=== PATIENT | female | born 1930 | race Caucasian/White ===

== ENCOUNTER 2017-08-31 11:24 | Inpatient (IN) | payer MEDICARE, OTHER ==
[~2017-08-31] VITALS: Ht 160 cm; Wt 51.0 kg
[2017-08-31 12:13] LABS: CLARITY,URINE SLIGHTLY CLOUDY (Clear); COLOR,URINE YELLOW (Yellow); GLUCOSE, URINE NEGATIVE (Neg); KETONES,URINE TRACE mg/dl (Neg); LEUKOCYTE ESTERASE ,URINE NEGATIVE (Neg); NITRITES, URINE NEGATIVE (Neg); OCCULT BLOOD,URINE LARGE (Neg); PROTEIN,URINE 30 mg/dl (Neg); UROBILINOGEN,URINE 0.2 E.U/dL (0.2-1.0)
[2017-08-31] MEDS ORDERED: normal saline 1000ML IV soln IVB ONE (12:15)
[2017-08-31 12:18] LABS: UA COLLECTION TYPE OTHER
[2017-08-31 12:19] LABS: AMORPHOUS URATES 2+; BACTERIA,URINE NONE SEEN /HPF (Neg); MUCUS STRANDS FEW /LPF (Neg); RBC,URINE 0-2 /HPF (0-2); SQUAMOUS EPITHELIAL CELL,UR FEW /LPF (FEW); WBC,URINE 0-4 /HPF (0-4)
[2017-08-31 12:39] LABS: BASOPHILS % (AUTO) 0.1 % (0-1); EOSINOPHILS % (AUTO) 0 % (0-6); HEMATOCRIT 37.2 % (35.0-45.0); LYMPHOCYTES # (AUTO) 0.8 X10'3 (1.1-4.8); LYMPHOCYTES % (AUTO) 11.5 % (21-51); MEAN CORPUSCULAR HEMOGLOBIN 33.5 PG (27.0-31.0); MEAN CORPUSCULAR HGB CONC 34.9 % (33.0-36.5); MEAN CORPUSCULAR VOLUME 95.9 FL (78-98); MEAN PLATELET VOLUME 10.5 FL (7.4-10.4); MONOCYTES # (AUTO) 0.6 X10'3 (0-0.9); MONOCYTES % (AUTO) 7.6 % (2-12); NEUTROPHILS # (AUTO) 5.9 X10'3 (1.8-7.7); NEUTROPHILS % (AUTO) 80.8 % (42-75); PLATELET COUNT 95 X10'3 (140-440); RED BLOOD COUNT 3.88 X10'6 (4.20-5.60); RED CELL DISTRIBUTION WIDTH 12.8 % (11.5-14.5); WHITE BLOOD COUNT 7.3 X10'3 (4.5-11.0)
[2017-08-31 12:48] LABS: INR 1.1 INR; PROTHROMBIN TIME 11.3 SECONDS (9.0-12.0)
[2017-08-31 12:56] LABS: LARGE PLATELETS FEW; PLATELET ESTIMATE DECREASED
[2017-08-31 13:06] LABS: ALANINE AMINOTRANSFERASE 62 U/L (12-78); ALBUMIN 3.6 G/DL (3.4-5.0); ALBUMIN/GLOBULIN RATIO 0.9 (1.1-1.5); ALKALINE PHOSPHATASE 55 IU/L (46-116); ANION GAP 11 (8-16); ASPARTATE AMINO TRANSFERASE 118 U/L (10-37); BILIRUBIN,TOTAL 0.5 MG/DL (0.1-1.0); BLOOD UREA NITROGEN 31 MG/DL (7-18); BUN/CREATININE RATIO 31.6 (6.6-38.0); CALCIUM 8.2 MG/DL (8.5-10.1); CHLORIDE 106 MMOL/L (99-107); CREATININE 0.98 MG/DL (0.40-0.90); ETHANOL < 0.010 GM/DL (0.0-0.010); GLUCOSE 107 MG/DL (70-104); POTASSIUM 3.6 MMOL/L (3.5-5.1); SODIUM 142 MMOL/L (135-145); TOTAL PROTEIN 7.4 G/DL (6.4-8.2); eGFR 54 ML/MIN
[2017-08-31 14:42] LABS: CREATINE KINASE 2520 U/L (26-192)
[2017-08-31] MEDS ORDERED: magnesium hydroxide 30ml (MOM) UD suspension PO PRN (16:55)
[2017-08-31] MEDS ORDERED: ondansetron/PF 4mg/2ml inj IV PRN (16:55)
[2017-08-31] MEDS ORDERED: acetaminophen 325mg tablet PO PRN (16:55)
[2017-08-31] MEDS ORDERED: mag hydrox/Alum hydrox/simeth 30ml oral suspension PO PRN (16:55)
[2017-08-31] MEDS ORDERED: aspirin 81mg tablet.DR PO ONE (16:55)
[2017-08-31] MEDS ORDERED: MULT-38 PO (18:15)
[2017-08-31] MEDS: normal saline 1000ml 1,000 ML IV SCH (18:28)
[2017-08-31 18:50] VITALS: BP 131/56
[2017-08-31 18:56] LABS: CHOL/HDL RATIO 3.4 (0.00-4.99); CHOLESTEROL 169 MG/DL (0-200); HDL CHOLESTEROL 49 MG/DL (35-60); LDL CHOLESTEROL 90 MG/DL (50-100); TRIGLYCERIDES 99 MG/DL (20-135)
[2017-08-31] MEDS: heparin, porcine 5000 units/ml vial SQ SCH (20:35)
[2017-08-31 22:00] VITALS: BP 116/48
[2017-09-01 02:00] VITALS: BP 116/59
[2017-09-01] MEDS: normal saline 1000ml 1,000 ML IV SCH ×2 (04:05→12:53)
[2017-09-01 06:00] VITALS: BP 125/62
[2017-09-01 06:11] LABS: BASOPHILS % (AUTO) 0.1 % (0-1); EOSINOPHILS % (AUTO) 0.3 % (0-6); HEMATOCRIT 32.7 % (35.0-45.0); HEMOGLOBIN 11.2 g/dl (12.0-16.0); LYMPHOCYTES # (AUTO) 1.4 X10'3 (1.1-4.8); MEAN CORPUSCULAR HEMOGLOBIN 33.5 PG (27.0-31.0); MEAN CORPUSCULAR HGB CONC 34.4 % (33.0-36.5); MEAN CORPUSCULAR VOLUME 97.4 FL (78-98); MEAN PLATELET VOLUME 10.6 FL (7.4-10.4); MONOCYTES # (AUTO) 0.5 X10'3 (0-0.9); MONOCYTES % (AUTO) 9.7 % (2-12); NEUTROPHILS # (AUTO) 2.9 X10'3 (1.8-7.7); NEUTROPHILS % (AUTO) 60.9 % (42-75); PLATELET COUNT 76 X10'3 (140-440); RED BLOOD COUNT 3.35 X10'6 (4.20-5.60); RED CELL DISTRIBUTION WIDTH 12.9 % (11.5-14.5); WHITE BLOOD COUNT 4.8 X10'3 (4.5-11.0)
[2017-09-01 06:23] LABS: ALBUMIN 2.7 G/DL (3.4-5.0); ANION GAP 11 (8-16); BLOOD UREA NITROGEN 18 MG/DL (7-18); BUN/CREATININE RATIO 23.1 (6.6-38.0); CALCIUM 7.5 MG/DL (8.5-10.1); CHLORIDE 111 MMOL/L (99-107); CREATININE 0.78 MG/DL (0.40-0.90); GLUCOSE 79 MG/DL (70-104); POTASSIUM 3.3 MMOL/L (3.5-5.1); SODIUM 143 MMOL/L (135-145); TOTAL CARBON DIOXIDE 21.4 MMOL/L (24-32); eGFR 70 ML/MIN
[2017-09-01] MEDS: heparin, porcine 5000 units/ml vial SQ SCH ×2 (08:00→20:00)
[2017-09-01] MEDS: levoTHYROXINE 75mcg tablet PO SCH (09:43)
[2017-09-01] MEDS: aspirin 81mg tablet.DR PO SCH (09:43)
[2017-09-01 10:00] VITALS: BP 115/49
[2017-09-01 14:00] VITALS: BP 112/52
[2017-09-01] MEDS: cetirizine 10mg tablet PO SCH (16:49)
[2017-09-01 18:55] VITALS: BP 122/55
[2017-09-01 22:00] VITALS: BP 144/60
[2017-09-02] MEDS: normal saline 1000ml 1,000 ML IV SCH ×3 (01:05→20:29)
[2017-09-02 02:00] VITALS: BP 138/46
[2017-09-02 05:52] LABS: BASOPHILS % (AUTO) 0.2 % (0-1); EOSINOPHILS % (AUTO) 0.3 % (0-6); HEMOGLOBIN 11.9 g/dl (12.0-16.0); LYMPHOCYTES # (AUTO) 1.9 X10'3 (1.1-4.8); LYMPHOCYTES % (AUTO) 38.7 % (21-51); MEAN CORPUSCULAR HGB CONC 35.1 % (33.0-36.5); MEAN CORPUSCULAR VOLUME 96.8 FL (78-98); MEAN PLATELET VOLUME 10.6 FL (7.4-10.4); MONOCYTES # (AUTO) 0.3 X10'3 (0-0.9); MONOCYTES % (AUTO) 6.1 % (2-12); NEUTROPHILS # (AUTO) 2.7 X10'3 (1.8-7.7); NEUTROPHILS % (AUTO) 54.7 % (42-75); PLATELET COUNT 70 X10'3 (140-440); RED BLOOD COUNT 3.52 X10'6 (4.20-5.60); RED CELL DISTRIBUTION WIDTH 13.3 % (11.5-14.5); WHITE BLOOD COUNT 4.9 X10'3 (4.5-11.0)
[2017-09-02 06:00] VITALS: BP 143/54
[2017-09-02 06:10] LABS: ALBUMIN 2.8 G/DL (3.4-5.0); ANION GAP 10 (8-16); BLOOD UREA NITROGEN 12 MG/DL (7-18); BUN/CREATININE RATIO 14.3 (6.6-38.0); CALCIUM 7.7 MG/DL (8.5-10.1); CHLORIDE 109 MMOL/L (99-107); CREATININE 0.84 MG/DL (0.40-0.90); GLUCOSE 93 MG/DL (70-104); POTASSIUM 3.5 MMOL/L (3.5-5.1); SODIUM 143 MMOL/L (135-145); eGFR 65 ML/MIN
[2017-09-02] MEDS: aspirin 81mg tablet.DR PO SCH (07:48)
[2017-09-02] MEDS: levoTHYROXINE 75mcg tablet PO SCH (07:48)
[2017-09-02] MEDS: cetirizine 10mg tablet PO SCH (07:48)
[2017-09-02] MEDS: heparin, porcine 5000 units/ml vial SQ SCH ×2 (07:55→20:00)
[2017-09-02 10:00] VITALS: BP 124/50
[2017-09-02 18:00] VITALS: BP 112/56
[2017-09-02 22:00] VITALS: BP 141/48
[2017-09-03] MEDS: normal saline 1000ml 1,000 ML IV SCH (03:45)
[2017-09-03 06:00] VITALS: BP 144/63
[2017-09-03 06:21] LABS: BASOPHILS % (AUTO) 0.4 % (0-1); HEMATOCRIT 32.7 % (35.0-45.0); HEMOGLOBIN 11.6 g/dl (12.0-16.0); LYMPHOCYTES # (AUTO) 1.8 X10'3 (1.1-4.8); MEAN CORPUSCULAR HEMOGLOBIN 33.5 PG (27.0-31.0); MEAN CORPUSCULAR HGB CONC 35.3 % (33.0-36.5); MEAN CORPUSCULAR VOLUME 94.8 FL (78-98); MEAN PLATELET VOLUME 10.2 FL (7.4-10.4); MONOCYTES # (AUTO) 0.3 X10'3 (0-0.9); MONOCYTES % (AUTO) 8.1 % (2-12); NEUTROPHILS # (AUTO) 1.9 X10'3 (1.8-7.7); NEUTROPHILS % (AUTO) 46.5 % (42-75); PLATELET COUNT 61 X10'3 (140-440); RED BLOOD COUNT 3.45 X10'6 (4.20-5.60); RED CELL DISTRIBUTION WIDTH 13.1 % (11.5-14.5); WHITE BLOOD COUNT 4.1 X10'3 (4.5-11.0)
[2017-09-03 06:27] LABS: ALBUMIN 2.6 G/DL (3.4-5.0); ANION GAP 8 (8-16); BLOOD UREA NITROGEN 11 MG/DL (7-18); BUN/CREATININE RATIO 15.1 (6.6-38.0); CALCIUM 7.6 MG/DL (8.5-10.1); CHLORIDE 112 MMOL/L (99-107); CREATININE 0.73 MG/DL (0.40-0.90); GLUCOSE 96 MG/DL (70-104); POTASSIUM 3.5 MMOL/L (3.5-5.1); SODIUM 145 MMOL/L (135-145); TOTAL CARBON DIOXIDE 24.6 MMOL/L (24-32); eGFR 76 ML/MIN
[2017-09-03] MEDS: heparin, porcine 5000 units/ml vial SQ SCH (08:00)
[2017-09-03] MEDS: cetirizine 10mg tablet PO SCH (08:39)
[2017-09-03] MEDS: levoTHYROXINE 75mcg tablet PO SCH (08:39)
[2017-09-03] MEDS: aspirin 81mg tablet.DR PO SCH (08:39)
[2017-09-03 10:00] VITALS: BP 125/56
== END 2017-09-03 15:15 | DRG 558 ==
LOC: ER 11:26 → ED HOLD 16:53 → ORTHO 4S 18:50
PROVIDERS: ADMIT Family Medicine; ATTEND Family Medicine
DX: M62.82 Rhabdomyolysis (principal); E86.0 Dehydration; D64.9 Anemia, unspecified; D32.0 Benign neoplasm of cerebral meninges; E03.9 Hypothyroidism, unspecified; R19.7 Diarrhea, unspecified
CPT/HCPCS: 36415; 70450; 70544; 70551; 71045; 80048; 80053; 80061; 80320; 81001; 82550; 84443; 84484; 85025; 85610; 87070; 93005; 93306; 93880; 96360; 97110; 97116; 97161; 97530; 99285; J1644; J7030

== ENCOUNTER 2017-10-09 18:16 | Inpatient (IN) | payer MEDICARE, OTHER ==
[~2017-10-09] VITALS: Ht 160 cm; Wt 50.9 kg
[~2017-10-09 18:16] MED LIST: MULT-38 PO
[2017-10-09] MEDS ORDERED: ondansetron 4mg rapidly disintigrating tab PO ONE (19:15)
[2017-10-09] MEDS ORDERED: HYDROcodone/acetaminophen 5mg/325mg tablet PO ONE (19:15)
[2017-10-09 20:23] LABS: BASOPHILS % (AUTO) 0.2 % (0-1); EOSINOPHILS # (AUTO) 0.1 X10'3 (0-0.9); EOSINOPHILS % (AUTO) 0.9 % (0-6); HEMATOCRIT 34.3 % (35.0-45.0); HEMOGLOBIN 11.6 g/dl (12.0-16.0); LYMPHOCYTES # (AUTO) 1.7 X10'3 (1.1-4.8); LYMPHOCYTES % (AUTO) 13.2 % (21-51); MEAN CORPUSCULAR HEMOGLOBIN 33.1 PG (27.0-31.0); MEAN CORPUSCULAR HGB CONC 33.8 % (33.0-36.5); MEAN CORPUSCULAR VOLUME 97.9 FL (78-98); MEAN PLATELET VOLUME 9.6 FL (7.4-10.4); MONOCYTES # (AUTO) 0.6 X10'3 (0-0.9); MONOCYTES % (AUTO) 4.8 % (2-12); NEUTROPHILS # (AUTO) 10.2 X10'3 (1.8-7.7); NEUTROPHILS % (AUTO) 80.9 % (42-75); PLATELET COUNT 173 X10'3 (140-440); RED CELL DISTRIBUTION WIDTH 13.2 % (11.5-14.5); WHITE BLOOD COUNT 12.6 X10'3 (4.5-11.0)
[2017-10-09 20:31] LABS: CLARITY,URINE Clear (Clear); COLOR,URINE Yellow (Yellow); GLUCOSE, URINE Negative (Neg); KETONES,URINE Negative (Neg); LEUKOCYTE ESTERASE ,URINE Trace (Neg); NITRITES, URINE Negative (Neg); OCCULT BLOOD,URINE Negative (Neg); PH,URINE 6.5 (4.8-8.0); PROTEIN,URINE Negative (Neg); UROBILINOGEN,URINE 0.2 E.U/dL (0.2-1.0)
[2017-10-09 20:33] LABS: INR 1.1 INR; PARTIAL THROMBOPLASTIN TIME 25 SECONDS (22-32); PROTHROMBIN TIME 10.9 SECONDS (9.0-12.0)
[2017-10-09 20:34] LABS: UA COLLECTION TYPE STRAIGHT CATH
[2017-10-09 20:36] LABS: ALANINE AMINOTRANSFERASE 34 U/L (12-78); ALBUMIN 3.4 G/DL (3.4-5.0); ALBUMIN/GLOBULIN RATIO 0.9 (1.1-1.5); ALKALINE PHOSPHATASE 69 IU/L (46-116); ANION GAP 11 (8-16); ASPARTATE AMINO TRANSFERASE 29 U/L (10-37); BILIRUBIN,TOTAL 0.4 MG/DL (0.1-1.0); BLOOD UREA NITROGEN 15 MG/DL (7-18); BUN/CREATININE RATIO 20.3 (6.6-38.0); CALCIUM 8.6 MG/DL (8.5-10.1); CHLORIDE 106 MMOL/L (99-107); CREATININE 0.74 MG/DL (0.40-0.90); GLUCOSE 104 MG/DL (70-104); POTASSIUM 3.7 MMOL/L (3.5-5.1); SODIUM 143 MMOL/L (135-145); TOTAL CARBON DIOXIDE 25.9 MMOL/L (24-32); eGFR 75 ML/MIN
[2017-10-09 20:46] LABS: BACTERIA,URINE NONE SEEN /HPF (Neg); RBC,URINE NONE SEEN /HPF (0-2); SQUAMOUS EPITHELIAL CELL,UR FEW /LPF (FEW); WBC,URINE 0-4 /HPF (0-4)
[2017-10-09] MEDS ORDERED: ondansetron/PF 4mg/2ml inj IV ONE (22:10)
[2017-10-09] MEDS ORDERED: morphine 4 MG/ML inj SYRINge IV ONE (22:10)
[2017-10-10] VITALS (21 sets, daily range): BP systolic 102–164; BP diastolic 38–87
[2017-10-10] MEDS ORDERED: acetaminophen 325mg tablet PO PRN ×2 (00:30)
[2017-10-10] MEDS ORDERED: diphenhydrAMINE 50 mg/ml inj IV PRN (00:30)
[2017-10-10] MEDS ORDERED: HYDROcodone/acetaminophen 10/325mg tab PO PRN (00:30)
[2017-10-10] MEDS ORDERED: mag hydrox/Alum hydrox/simeth 30ml oral suspension PO PRN (00:30)
[2017-10-10] MEDS ORDERED: acetaminophen 650mg rectal suppository RC PRN (00:30)
[2017-10-10] MEDS ORDERED: magnesium hydroxide 30ml (MOM) UD suspension PO PRN (00:30)
[2017-10-10] MEDS ORDERED: HYDROmorphone inj. 0.5 MG/0.5 ML DISP.SYRIN IV PRN ×2 (00:30)
[2017-10-10] MEDS ORDERED: diphenhydrAMINE 25mg capsule PO PRN (00:30)
[2017-10-10] MEDS ORDERED: ondansetron/PF 4mg/2ml inj IV PRN ×2 (00:30→10:55)
[2017-10-10] MEDS ORDERED: morphine 4 MG/ML inj SYRINge IV PRN ×2 (00:30)
[2017-10-10] MEDS ORDERED: metoclopramide 5 mg/ml inj IV PRN (00:30)
[2017-10-10] MEDS: normal saline 1000ml 1,000 ML IV SCH (01:21)
[2017-10-10 01:38] LABS: HEMOGLOBIN A1C 5.1 % (4.5-6.2)
[2017-10-10 01:51] LABS: MAGNESIUM 1.8 MG/DL (1.5-2.4); PHOSPHORUS 3.9 MG/DL (2.3-4.5)
[2017-10-10] MEDS: docusate sod 100mg capsule PO SCH ×2 (06:37→19:22)
[2017-10-10] MEDS: multivitamins, therapeutics tablet PO SCH (06:38)
[2017-10-10] MEDS: pantoprazole 40 MG vial IV SCH (07:11)
[2017-10-10] MEDS ORDERED: ceFAZolin 1GM/D5W- ADD-VANTAGE 50 ML IV ONE (10:05)
[2017-10-10] MEDS ORDERED: LEVO125T PO (10:10)
[2017-10-10] MEDS ORDERED: ceFAZolin 1000mg inj ONE (10:53)
[2017-10-10] MEDS ORDERED: ringers solution, lacted 1,000 ML IV SCH (10:54)
[2017-10-10] MEDS ORDERED: proCHLORperazine 10 MG/2 ml inj IV PRN (10:55)
[2017-10-10] MEDS ORDERED: morphine 10mg/ml inj. IV PRN ×2 (10:55)
[2017-10-10] MEDS ORDERED: meperidine/PF 50mg/ml syringe IV PRN ×3 (10:55)
[2017-10-10] MEDS ORDERED: MIDAZolam 5mg/5ml vial ONE (11:13)
[2017-10-10] MEDS ORDERED: fentaNYL/PF 50MCG/1 ML 2ML syringe ONE (11:13)
[2017-10-10] MEDS ORDERED: BUPIVAcaine/dex-water/PF 7.5 mg/ml 2ml ampul ONE (11:19)
[2017-10-10] MEDS ORDERED: morphine /PF 1mg/ml 10ml inj. ONE (11:31)
[2017-10-10] MEDS ORDERED: vancomycin/NS 1 GM ADD-VANTAGE 250 ML IV ONE (13:00)
[2017-10-10] MEDS: ceFAZolin 1GM/D5W- ADD-VANTAGE 50 ML IV SCH ×2 (16:10→23:32)
[2017-10-10] MEDS ORDERED: temazepam 15mg capsule PO PRN (21:00)
[2017-10-11 02:00] VITALS: BP 136/52
[2017-10-11 06:00] VITALS: BP 123/43
[2017-10-11] MEDS ORDERED: levoTHYROXINE 125mcg tablet PO SCH ×2 (07:00→08:00)
[2017-10-11 07:16] LABS: BASOPHILS % (AUTO) 0.5 % (0-1); EOSINOPHILS # (AUTO) 0.1 X10'3 (0-0.9); EOSINOPHILS % (AUTO) 1.7 % (0-6); HEMATOCRIT 24.4 % (35.0-45.0); HEMOGLOBIN 8.3 g/dl (12.0-16.0); LYMPHOCYTES % (AUTO) 23.9 % (21-51); MEAN CORPUSCULAR HEMOGLOBIN 33.2 PG (27.0-31.0); MEAN CORPUSCULAR HGB CONC 33.9 % (33.0-36.5); MEAN CORPUSCULAR VOLUME 98.2 FL (78-98); MEAN PLATELET VOLUME 9.8 FL (7.4-10.4); MONOCYTES # (AUTO) 1.1 X10'3 (0-0.9); MONOCYTES % (AUTO) 12.7 % (2-12); NEUTROPHILS # (AUTO) 5.1 X10'3 (1.8-7.7); NEUTROPHILS % (AUTO) 61.2 % (42-75); PLATELET COUNT 113 X10'3 (140-440); RED BLOOD COUNT 2.48 X10'6 (4.20-5.60); WHITE BLOOD COUNT 8.3 X10'3 (4.5-11.0)
[2017-10-11 07:40] LABS: ALANINE AMINOTRANSFERASE 23 U/L (12-78); ALBUMIN 2.4 G/DL (3.4-5.0); ALBUMIN/GLOBULIN RATIO 0.8 (1.1-1.5); ALKALINE PHOSPHATASE 44 IU/L (46-116); ANION GAP 6 (8-16); ASPARTATE AMINO TRANSFERASE 21 U/L (10-37); BILIRUBIN,TOTAL 0.7 MG/DL (0.1-1.0); BLOOD UREA NITROGEN 19 MG/DL (7-18); BUN/CREATININE RATIO 24.4 (6.6-38.0); CALCIUM 7.9 MG/DL (8.5-10.1); CHLORIDE 107 MMOL/L (99-107); CHOL/HDL RATIO 2.7 (0.00-4.99); CHOLESTEROL 112 MG/DL (0-200); CREATININE 0.78 MG/DL (0.40-0.90); GLUCOSE 99 MG/DL (70-104); HDL CHOLESTEROL 42 MG/DL (35-60); LDL CHOLESTEROL 59 MG/DL (50-100); POTASSIUM 3.5 MMOL/L (3.5-5.1); SODIUM 139 MMOL/L (135-145); TOTAL CARBON DIOXIDE 26.3 MMOL/L (24-32); TOTAL PROTEIN 5.3 G/DL (6.4-8.2); TRIGLYCERIDES 59 MG/DL (20-135); eGFR 70 ML/MIN
[2017-10-11] MEDS: enoxaparin 40mg/0.4ml syringe SUBCUT SCH (07:44)
[2017-10-11] MEDS: docusate sod 100mg capsule PO SCH ×2 (07:44→20:49)
[2017-10-11] MEDS: ceFAZolin 1GM/D5W- ADD-VANTAGE 50 ML IV SCH (07:44)
[2017-10-11] MEDS: pantoprazole 40 MG vial IV SCH (07:44)
[2017-10-11] MEDS: multivitamins, therapeutics tablet PO SCH (07:44)
[2017-10-11 10:00] VITALS: BP 131/45
[2017-10-11 14:26] VITALS: BP 123/42
[2017-10-11] MEDS: normal saline 1000ml 1,000 ML IV SCH (16:11)
[2017-10-11 18:00] VITALS: BP 148/40
[2017-10-11 22:00] VITALS: BP 150/52
[2017-10-12] MEDS: normal saline 1000ml 1,000 ML IV SCH ×2 (05:22→18:22)
[2017-10-12] MEDS: HYDROcodone/acetaminophen 5mg/325mg tablet PO PRN ×2 (05:24→20:38)
[2017-10-12 05:29] LABS: BASOPHILS % (AUTO) 0.3 % (0-1); EOSINOPHILS # (AUTO) 0.1 X10'3 (0-0.9); EOSINOPHILS % (AUTO) 0.9 % (0-6); HEMATOCRIT 23.6 % (35.0-45.0); HEMOGLOBIN 8.2 g/dl (12.0-16.0); LYMPHOCYTES # (AUTO) 1.3 X10'3 (1.1-4.8); LYMPHOCYTES % (AUTO) 13.2 % (21-51); MEAN CORPUSCULAR HEMOGLOBIN 33.2 PG (27.0-31.0); MEAN CORPUSCULAR HGB CONC 34.8 % (33.0-36.5); MEAN CORPUSCULAR VOLUME 95.6 FL (78-98); MEAN PLATELET VOLUME 9.6 FL (7.4-10.4); MONOCYTES % (AUTO) 10.1 % (2-12); NEUTROPHILS # (AUTO) 7.6 X10'3 (1.8-7.7); NEUTROPHILS % (AUTO) 75.5 % (42-75); PLATELET COUNT 115 X10'3 (140-440); RED BLOOD COUNT 2.47 X10'6 (4.20-5.60); RED CELL DISTRIBUTION WIDTH 13.1 % (11.5-14.5); WHITE BLOOD COUNT 10.1 X10'3 (4.5-11.0)
[2017-10-12 06:00] VITALS: BP 146/60
[2017-10-12 06:21] LABS: ALANINE AMINOTRANSFERASE 17 U/L (12-78); ALBUMIN 2.2 G/DL (3.4-5.0); ALBUMIN/GLOBULIN RATIO 0.7 (1.1-1.5); ALKALINE PHOSPHATASE 45 IU/L (46-116); ANION GAP 11 (8-16); ASPARTATE AMINO TRANSFERASE 18 U/L (10-37); BILIRUBIN,TOTAL 0.6 MG/DL (0.1-1.0); BLOOD UREA NITROGEN 12 MG/DL (7-18); BUN/CREATININE RATIO 21.1 (6.6-38.0); CALCIUM 7.9 MG/DL (8.5-10.1); CHLORIDE 108 MMOL/L (99-107); CREATININE 0.57 MG/DL (0.40-0.90); GLUCOSE 117 MG/DL (70-104); POTASSIUM 3.2 MMOL/L (3.5-5.1); SODIUM 140 MMOL/L (135-145); TOTAL CARBON DIOXIDE 20.7 MMOL/L (24-32); TOTAL PROTEIN 5.3 G/DL (6.4-8.2); eGFR > 90 ML/MIN
[2017-10-12] MEDS: pantoprazole 40mg Tablet.DR PO SCH (08:48)
[2017-10-12] MEDS: enoxaparin 40mg/0.4ml syringe SUBCUT SCH (08:48)
[2017-10-12] MEDS: docusate sod 100mg capsule PO SCH ×2 (08:48→20:37)
[2017-10-12] MEDS: multivitamins, therapeutics tablet PO SCH (08:48)
[2017-10-12] MEDS: levoTHYROXINE 125mcg tablet PO SCH (08:48)
[2017-10-12 10:00] VITALS: BP 125/42
[2017-10-12] MEDS ORDERED: magnesium 2GM in 50ml NS 50 ML IV PRN (15:45)
[2017-10-12] MEDS ORDERED: potassium Cl 20 mEq SR tablet PO PRN (15:45)
[2017-10-12] MEDS ORDERED: potassium Cl 40MEQ/NS 500ml 500 ML IV PRN ×2 (15:45)
[2017-10-12] MEDS ORDERED: magnesium Cl slow-release 64mg tablet PO PRN (15:45)
[2017-10-12] MEDS ORDERED: magnesium 4gm in 100ml NS 100 ML IV PRN (15:45)
[2017-10-12 18:00] VITALS: BP 154/50
[2017-10-12] MEDS: potassium Cl 20 mEq SR tablet PO PRN (20:38)
[2017-10-12 22:18] VITALS: BP 125/45
[2017-10-13] MEDS: potassium Cl 20 mEq SR tablet PO PRN (00:34)
[2017-10-13 05:50] LABS: BASOPHILS % (AUTO) 0.2 % (0-1); EOSINOPHILS # (AUTO) 0.3 X10'3 (0-0.9); EOSINOPHILS % (AUTO) 2.8 % (0-6); HEMATOCRIT 23.3 % (35.0-45.0); HEMOGLOBIN 8.1 g/dl (12.0-16.0); LYMPHOCYTES # (AUTO) 1.6 X10'3 (1.1-4.8); MEAN CORPUSCULAR HEMOGLOBIN 33.8 PG (27.0-31.0); MEAN CORPUSCULAR HGB CONC 34.7 % (33.0-36.5); MEAN CORPUSCULAR VOLUME 97.4 FL (78-98); MEAN PLATELET VOLUME 9.7 FL (7.4-10.4); MONOCYTES # (AUTO) 0.8 X10'3 (0-0.9); NEUTROPHILS # (AUTO) 6.4 X10'3 (1.8-7.7); PLATELET COUNT 143 X10'3 (140-440); RED BLOOD COUNT 2.39 X10'6 (4.20-5.60); WHITE BLOOD COUNT 9.1 X10'3 (4.5-11.0)
[2017-10-13 06:00] VITALS: BP 138/60
[2017-10-13 06:34] LABS: ALANINE AMINOTRANSFERASE 30 U/L (12-78); ALBUMIN/GLOBULIN RATIO 0.6 (1.1-1.5); ALKALINE PHOSPHATASE 70 IU/L (46-116); ANION GAP 8 (8-16); ASPARTATE AMINO TRANSFERASE 45 U/L (10-37); BILIRUBIN,TOTAL 0.6 MG/DL (0.1-1.0); BLOOD UREA NITROGEN 13 MG/DL (7-18); BUN/CREATININE RATIO 24.1 (6.6-38.0); CALCIUM 7.8 MG/DL (8.5-10.1); CHLORIDE 108 MMOL/L (99-107); CREATININE 0.54 MG/DL (0.40-0.90); GLUCOSE 105 MG/DL (70-104); MAGNESIUM 2.1 MG/DL (1.5-2.4); POTASSIUM 3.9 MMOL/L (3.5-5.1); SODIUM 140 MMOL/L (135-145); TOTAL CARBON DIOXIDE 24.5 MMOL/L (24-32); TOTAL PROTEIN 5.4 G/DL (6.4-8.2); eGFR > 90 ML/MIN
[2017-10-13] MEDS: levoTHYROXINE 125mcg tablet PO SCH (08:45)
[2017-10-13] MEDS: multivitamins, therapeutics tablet PO SCH (08:45)
[2017-10-13] MEDS: pantoprazole 40mg Tablet.DR PO SCH (08:45)
[2017-10-13] MEDS: enoxaparin 40mg/0.4ml syringe SUBCUT SCH (08:46)
[2017-10-13] MEDS: docusate sod 100mg capsule PO SCH (08:46)
[2017-10-13] MEDS: normal saline 1000ml 1,000 ML IV SCH (08:46)
[2017-10-13 10:00] VITALS: BP 133/51
[2017-10-13] MEDS: HYDROcodone/acetaminophen 5mg/325mg tablet PO PRN (12:19)
== END 2017-10-13 13:10 | DRG 481 ==
LOC: ER 18:16 → ED HOLD 23:56 → EDBEDREQ 10-10 00:10 → ORTHO 4S 10-10 01:00
PROVIDERS: ADMIT Family Medicine; ATTEND Orthopaedic Surgery
PROC: 0QS606Z Reposition Right Upper Femur with Intramedullary Internal Fixation Device, Open Approach (ICD-10-PCS; principal; 2017-10-10 11:22)
DX: S72.141A Displaced intertrochanteric fracture of right femur, initial encounter for closed fracture (principal); D62 Acute posthemorrhagic anemia; W01.0XXA Fall on same level from slipping, tripping and stumbling without subsequent striking against object, initial encounter; E03.9 Hypothyroidism, unspecified; E87.6 Hypokalemia; I16.0 Hypertensive urgency; Z79.899 Other long term (current) drug therapy; Y93.89 Activity, other specified; Y92.89 Other specified places as the place of occurrence of the external cause; Y99.8 Other external cause status
CPT/HCPCS: 36415; 71045; 73502; 73560; 76001; 80053; 80061; 81001; 83036; 83735; 83880; 84100; 84443; 85025; 85610; 85730; 86885; 86900; 86901; 87070; 87088; 93005; 96374; 97110; 97116; 97162; 97530; 99285; A4315; A6212; A6257; A6449; A7000; C9113; J0690; J1650; J2250; J2270; J2274; J3010; J3370; J3490; J7030; J7120

== ENCOUNTER 2019-04-16 12:28 | Inpatient (IN) | payer MEDICARE, OTHER ==
[~2019-04-16] VITALS: Ht 160 cm; Wt 50.9 kg
[2019-04-16] MEDS: K and/or MAG REPLACEMENT MC SCH (08:00)
[~2019-04-16 12:28] MED LIST changes: +LEVO125T PO
[2019-04-16] MEDS ORDERED: normal saline 1000ML IV soln IVB ONE (12:45)
[2019-04-16 13:12] LABS: BASOPHILS % (AUTO) 0.2 % (0-1); EOSINOPHILS % (AUTO) 0 % (0-6); HEMATOCRIT 37.3 % (35.0-45.0); HEMOGLOBIN 12.6 g/dl (12.0-16.0); LYMPHOCYTES # (AUTO) 1.1 X10'3 (1.1-4.8); LYMPHOCYTES % (AUTO) 8.7 % (21-51); MEAN CORPUSCULAR HEMOGLOBIN 33.5 PG (27.0-31.0); MEAN CORPUSCULAR HGB CONC 33.8 g/dL (33.0-36.5); MEAN CORPUSCULAR VOLUME 99.2 FL (78-98); MEAN PLATELET VOLUME 9.7 FL (7.4-10.4); MONOCYTES # (AUTO) 0.6 X10'3 (0-0.9); MONOCYTES % (AUTO) 4.8 % (2-12); NEUTROPHILS # (AUTO) 11.1 X10'3 (1.8-7.7); NEUTROPHILS % (AUTO) 86.3 % (42-75); PLATELET COUNT 149 X10'3 (140-440); RED BLOOD COUNT 3.75 X10'6 (4.20-5.60); RED CELL DISTRIBUTION WIDTH 12.8 % (11.5-14.5); WHITE BLOOD COUNT 12.8 X10'3 (4.5-11.0)
[2019-04-16 13:24] LABS: PARTIAL THROMBOPLASTIN TIME 25 SECONDS (22-32)
[2019-04-16 14:11] LABS: CLARITY,URINE CLEAR (Clear); COLOR,URINE YELLOW (Yellow); GLUCOSE, URINE NEGATIVE (Neg); KETONES,URINE 15 mg/dl (Neg); LEUKOCYTE ESTERASE ,URINE NEGATIVE (Neg); NITRITES, URINE NEGATIVE (Neg); OCCULT BLOOD,URINE NEGATIVE (Neg); PH,URINE 6.5 (4.8-8.0); PROTEIN,URINE NEGATIVE (Neg); UA COLLECTION TYPE STRAIGHT CATH; UROBILINOGEN,URINE 0.2 E.U/dL (0.2-1.0)
[2019-04-16 14:18] LABS: ALANINE AMINOTRANSFERASE 26 U/L (12-78); ALBUMIN 3.4 G/DL (3.4-5.0); ALBUMIN/GLOBULIN RATIO 0.8 (1.1-1.5); ALKALINE PHOSPHATASE 57 IU/L (46-116); ANION GAP 11 (8-16); ASPARTATE AMINO TRANSFERASE 29 U/L (10-37); BILIRUBIN,TOTAL 0.7 MG/DL (0.1-1.0); BLOOD UREA NITROGEN 12 MG/DL (7-18); BUN/CREATININE RATIO 16.2 (6.6-38.0); CALCIUM 8.4 MG/DL (8.5-10.1); CHLORIDE 105 MMOL/L (99-107); CREATININE 0.74 MG/DL (0.40-0.90); GLUCOSE 110 MG/DL (70-104); LIPASE 1277 U/L (73-393); MAGNESIUM 1.9 MG/DL (1.5-2.4); POTASSIUM 3.8 MMOL/L (3.5-5.1); SODIUM 139 MMOL/L (135-145); TOTAL CARBON DIOXIDE 23.3 MMOL/L (24-32); TOTAL PROTEIN 7.5 G/DL (6.4-8.2); eGFR 74 ML/MIN
[2019-04-16] MEDS ORDERED: levoFLOXACIN-Levaquin 750MG/D5 150 ML IV ONE (14:30)
[2019-04-16] MEDS ORDERED: CefTRIAXone 2gm/D5W 50ml 50 ML IV ONE (14:30)
[2019-04-16] MEDS ORDERED: CA C1TAB91 PO (14:55)
[2019-04-16] MEDS ORDERED: ALEN70TA3 PO (14:55)
[2019-04-16] MEDS ORDERED: LEVO100T PO (14:55)
[2019-04-16] MEDS ORDERED: ASPI81TA52 PO (14:55)
[2019-04-16] MEDS ORDERED: mag hydrox/Alum hydrox/simeth 30ml oral suspension PO PRN ×2 (15:05→15:30)
[2019-04-16] MEDS ORDERED: magnesium hydroxide 30ml (MOM) UD suspension PO PRN ×2 (15:05→15:30)
[2019-04-16] MEDS ORDERED: non-formulary drug (Alendronate Sodium (Fosamax) 1 TAB) PO SCH (15:05)
[2019-04-16] MEDS ORDERED: acetaminophen 325mg tablet PO PRN ×3 (15:05→15:30)
[2019-04-16] MEDS ORDERED: ondansetron/PF 4mg/2ml inj IV PRN ×2 (15:05→15:30)
[2019-04-16] MEDS ORDERED: HYDROcodone/acetaminophen 5mg/325mg tablet PO PRN (15:30)
[2019-04-16] MEDS ORDERED: potassium Cl 20 mEq SR tablet PO PRN ×2 (15:30)
[2019-04-16] MEDS ORDERED: magnesium 4gm in 100ml NS 100 ML IV PRN (15:30)
[2019-04-16] MEDS ORDERED: morphine 2 MG/ML inj. syringe IV PRN ×2 (15:30)
[2019-04-16] MEDS ORDERED: magnesium Cl slow-release 64mg tablet PO PRN (15:30)
[2019-04-16] MEDS ORDERED: bisacodyl 10mg suppository rectal RC PRN (15:30)
[2019-04-16] MEDS ORDERED: acetaminophen 650mg rectal suppository RC PRN (15:30)
[2019-04-16] MEDS ORDERED: HYDROcodone/acetaminophen 10/325mg tab PO PRN (15:30)
[2019-04-16] MEDS ORDERED: diphenhydrAMINE 50 mg/ml inj IV PRN (15:30)
[2019-04-16] MEDS ORDERED: magnesium 2GM in 50ml NS 50 ML IV PRN (15:30)
[2019-04-16] MEDS ORDERED: diphenhydrAMINE 25mg capsule PO PRN (15:30)
[2019-04-16] MEDS ORDERED: potassium CL 10mEq/100ml bag 100 ML IV PRN ×2 (15:30)
[2019-04-16 15:52] LABS: HEMOGLOBIN A1C 5.4 % (4.5-6.2)
[2019-04-16 15:53] LABS: D-DIMER 1.43 MG/L FEU (0-0.50)
--- NOTE | 2019-04-16 16:39 | NUR ---
ATTEMPTED TO CALL REPORT, SHEET TAILER WILL CALL BACK WHEN RN IS ASSIGNED
[2019-04-16] MEDS: dextrose 5%-normal saline 1,000 ML IV SCH (16:43)
[2019-04-16 17:00] VITALS: BP 138/58
--- NOTE | 2019-04-16 17:15 | NUR ---
Patient admitted to room [facility] from ED. I have received report from Virginia MENDEZ and had the opportunity to ask questions and assume patient care. VSS 138/58 90 98.2 19 92 % om RA, pain 0/10, Tele monitor for 24 hrs, tele monitor 27 applied, call light w/in reach, all needs met at this time, will continue to monitor.
[2019-04-16] MEDS ORDERED: iohexol 350MG/ML 100ml bottle IV ONE (17:23)
[2019-04-16 18:00] VITALS: BP 148/57
--- NOTE | 2019-04-16 18:13 | NUR ---
Problems reprioritized. Patient report given, questions answered & plan of care reviewed with Wilfredo MENDEZ.
--- NOTE | 2019-04-16 18:13 | NUR ---
Patient in room [facility]. I have received report from ANDREA Christy and had the opportunity to ask questions and assume patient care. Pt is accompanied by sister, Dot. Pt denies CP, SOB, n/v, pain.
[2019-04-16] MEDS: calcium carbonate/vitamin D3 tablet PO SCH (19:49)
[2019-04-16] MEDS: heparin, porcine 5000 units/ml vial SQ SCH (19:49)
[2019-04-16] MEDS ORDERED: temazepam 15mg capsule PO PRN (21:00)
[2019-04-17] VITALS: BP 143/56
[2019-04-17] MEDS: dextrose 5%-normal saline 1,000 ML IV SCH (03:59)
[2019-04-17 05:23] LABS: BASOPHILS % (AUTO) 0.3 % (0-1); EOSINOPHILS % (AUTO) 0.6 % (0-6); HEMATOCRIT 33.6 % (35.0-45.0); HEMOGLOBIN 11.4 g/dl (12.0-16.0); LYMPHOCYTES # (AUTO) 1.5 X10'3 (1.1-4.8); LYMPHOCYTES % (AUTO) 18.7 % (21-51); MEAN CORPUSCULAR HEMOGLOBIN 33.7 PG (27.0-31.0); MEAN CORPUSCULAR HGB CONC 33.9 g/dL (33.0-36.5); MEAN CORPUSCULAR VOLUME 99.5 FL (78-98); MEAN PLATELET VOLUME 9.8 FL (7.4-10.4); MONOCYTES # (AUTO) 0.6 X10'3 (0-0.9); MONOCYTES % (AUTO) 7.1 % (2-12); NEUTROPHILS # (AUTO) 5.8 X10'3 (1.8-7.7); NEUTROPHILS % (AUTO) 73.3 % (42-75); PLATELET COUNT 128 X10'3 (140-440); RED BLOOD COUNT 3.37 X10'6 (4.20-5.60); RED CELL DISTRIBUTION WIDTH 12.7 % (11.5-14.5); WHITE BLOOD COUNT 7.9 X10'3 (4.5-11.0)
[2019-04-17 05:37] LABS: ALANINE AMINOTRANSFERASE 26 U/L (12-78); ALBUMIN 2.7 G/DL (3.4-5.0); ALBUMIN/GLOBULIN RATIO 0.7 (1.1-1.5); ALKALINE PHOSPHATASE 48 IU/L (46-116); ANION GAP 9 (8-16); ASPARTATE AMINO TRANSFERASE 26 U/L (10-37); BILIRUBIN,TOTAL 0.7 MG/DL (0.1-1.0); BLOOD UREA NITROGEN 9 MG/DL (7-18); BUN/CREATININE RATIO 12.7 (6.6-38.0); CALCIUM 7.7 MG/DL (8.5-10.1); CHLORIDE 110 MMOL/L (99-107); CHOL/HDL RATIO 2.5 (0.00-4.99); CHOLESTEROL 136 MG/DL (0-200); CREATININE 0.71 MG/DL (0.40-0.90); GLUCOSE 104 MG/DL (70-104); HDL CHOLESTEROL 54 MG/DL (35-60); LDL CHOLESTEROL 79 MG/DL (50-100); LIPASE 106 U/L (73-393); MAGNESIUM 1.8 MG/DL (1.5-2.4); POTASSIUM 3.5 MMOL/L (3.5-5.1); SODIUM 143 MMOL/L (135-145); TOTAL CARBON DIOXIDE 23.6 MMOL/L (24-32); TOTAL PROTEIN 6.4 G/DL (6.4-8.2); TRIGLYCERIDES 37 MG/DL (20-135); eGFR 78 ML/MIN
--- NOTE | 2019-04-17 06:30 | NUR ---
Patient in room [facility]. I have received report from ANDREA Villalobos and had the opportunity to ask questions and assume patient care.
--- NOTE | 2019-04-17 06:43 | NUR ---
Problems reprioritized. Patient report given, questions answered & plan of care reviewed with ANDREA Khanna. Patient stable at shift change
--- NOTE | 2019-04-17 07:12 | NUR ---
RECEIVED REPORT FROM JAIMIE MENDEZ. MARISA Germain RN
[2019-04-17] MEDS: calcium carbonate/vitamin D3 tablet PO SCH (07:30)
[2019-04-17] MEDS ORDERED: levoTHYROXINE 25mcg tablet PO SCH (08:00)
[2019-04-17] MEDS ORDERED: aspirin 81mg tablet.DR PO SCH (08:00)
[2019-04-17] MEDS: K and/or MAG REPLACEMENT MC SCH (08:00)
[2019-04-17] MEDS ORDERED: levoTHYROXINE 100mcg tablet PO SCH (08:00)
[2019-04-17] MEDS ORDERED: iohexol 350MG/ML 100ml bottle IV ONE (08:14)
[2019-04-17] MEDS: heparin, porcine 5000 units/ml vial SQ SCH (10:00)
[2019-04-17] MEDS ORDERED: furosemide 20MG tablet PO ONE (10:20)
[2019-04-17 11:00] VITALS: BP 149/74
[2019-04-17 11:46] VITALS: BP 149/67
[2019-04-17] MEDS ORDERED: FURO-150 PO (12:00)
--- NOTE | 2019-04-17 14:51 | NUR ---
Patient stable and appropriate for discharge, IVs taken out, tele taken off, education given, patient taken to lobby by wheel chair to awaiting car where sister and brother in law will be taking the patient home, all belongings sent with patient
[2019-04-17] MEDS ORDERED: levoFLOXACIN-Levaquin 750MG/D5 150 ML IV SCH (15:00)
== END 2019-04-17 14:50 | disposition home or self-care (01) | DRG 438 ==
LOC: ER 12:28 → ED HOLD 15:02 → SUR 3N 17:19
PROVIDERS: ADMIT Family Medicine; ATTEND Internal Medicine
PROC: B32S1ZZ Computerized Tomography (CT Scan) of Right Pulmonary Artery using Low Osmolar Contrast (ICD-10-PCS; principal; 2019-04-17)
PROC: B3201ZZ Computerized Tomography (CT Scan) of Thoracic Aorta using Low Osmolar Contrast (ICD-10-PCS; 2019-04-17)
DX: K85.90 Acute pancreatitis without necrosis or infection, unspecified (principal); J18.9 Pneumonia, unspecified organism; I50.33 Acute on chronic diastolic (congestive) heart failure; J90 Pleural effusion, not elsewhere classified; M81.0 Age-related osteoporosis without current pathological fracture; I27.20 Pulmonary hypertension, unspecified; E03.9 Hypothyroidism, unspecified; R79.89 Other specified abnormal findings of blood chemistry; K44.9 Diaphragmatic hernia without obstruction or gangrene; M85.80 Other specified disorders of bone density and structure, unspecified site; Z66 Do not resuscitate; Z60.2 Problems related to living alone; Z79.82 Long term (current) use of aspirin; Z79.83 Long term (current) use of bisphosphonates; Z79.890 Hormone replacement therapy; Z79.899 Other long term (current) drug therapy; Z82.0 Family history of epilepsy and other diseases of the nervous system
CPT/HCPCS: 36415; 71045; 71275; 80053; 80061; 81003; 83036; 83605; 83690; 83735; 83880; 84100; 84443; 84484; 85025; 85379; 85610; 85730; 87040; 87081; 93005; 93306; 96361; 96365; 97116; 97161; 97530; 99285; G0378; J0696; J1644; J1956; J7042; Q9967